=== PATIENT | male | born 1950 | race Caucasian/White ===

== ENCOUNTER → 2017-06-16 | Outpatient (CLI) | payer MEDICARE ==
--- NOTE | 2017-06-16 13:41 | RADIOLOGY REPORT (SQ) ---
EXAM DESCRIPTION: U/S THYROID/SFT TISS HD NECK COMPLETED DATE/TIME: 06/16/2017 11:18 am REASON FOR STUDY: NECK MASS (R22.1) R22.1 LOCALIZED SWELLING, MASS AND LUMP, NECK COMPARISON: None. TECHNIQUE: Dynamic and static albarado-scale images acquired of the thyroid gland. Selected additional c olor/power Doppler images recorded. All images stored to PACS. LIMITATIONS: None. FINDINGS: RIGHT LOBE: Normal size, 4.5 x 1.4 x 2 cm in size. Homogeneous echotexture. No worrisome solid masses. Several tiny colloid cysts are present, the largest is 4 mm in the right midpole glan d. LEFT LOBE: Normal size, 4.5 x 1.8 x 1.5 cm in size. Homogeneous echotexture. No worrisome solid mas ses. Several tiny colloid cysts are present less than 8 mm in size. ISTHMUS: Normal size. Homogeneous echotexture. No cystic or solid masses. OTHER: Please note that this was a focus thyroid exam. If there is a palpable neck elsewhere in the patient's neck, a focused ultrasound exam could be performed in this area IMPRESSION: ESSENTIALLY NORMAL THYROID ULTRASOUND FOR THE PATIENT'S AGE. TECHNICAL DOCUMENTATION: JOB ID: [id number] [employer]- All Rights Reserved Reading location - IP/workstation name: [email or web address]
== END ==
LOC: RAD 10:17
PROVIDERS: ATTEND Family Medicine
DX: R22.1 Localized swelling, mass and lump, neck (principal)
CPT/HCPCS: 76536

== ENCOUNTER 2020-03-28 05:52 | Day surgery (SDC) | payer MEDICARE ==
[2020-03-24 09:55] LABS: HEMATOCRIT 43.9 % (37.9-51.0); HEMOGLOBIN 15.2 g/dL (13.5-17.0); MEAN CORPUSCULAR HEMOGLOBIN 30.9 pg (27.0-33.4); MEAN CORPUSCULAR HGB CONC 34.6 g/dL (32.0-36.0); MEAN CORPUSCULAR VOLUME 90 fl (80-97); PLATELET COUNT 205 10^3/uL (150-450); RED CELL DISTRIBUTION WIDTH 13.8 % (11.5-14.0); WHITE BLOOD COUNT 7.7 10^3/uL (4.0-10.5)
[2020-03-24 09:58] LABS: INTERNATIONAL RATION (INR) 0.86
[2020-03-24 09:59] LABS: PARTIAL THROMBOPLASTIN TIME 28.4 SEC (23.5-35.8)
--- NOTE | 2020-03-24 19:25 | EKG REPORT ---
SEVERITY:- NORMAL ECG - SINUS RHYTHM : Confirmed by: Ashley Urias MD 24-Mar-2020 19:25:00
[~2020-03-28 05:52] MED LIST: CEFAZOLIN 1 GM/D5W RTU 1 GM/50 ML RTUPB IV ONE; CEFAZOLIN 1 GM/D5W RTU 1 GM/50 ML RTUPB IV PRN; LACTATED RINGERS 1000 ML IV PRN; LIDOCAINE 0.5% INJ-PF (5 MG/ML) 50 ML SDV SUBCUT PRN
[2020-03-28] MEDS ORDERED: MIDAZOLAM 2 MG/2 ML INJ ONE (07:06)
[2020-03-28] MEDS ORDERED: FENTANYL CITRATE INJ/PF 100 MCG/2 ML AMPUL ONE (07:06)
[2020-03-28] MEDS ORDERED: DEXMEDETOMIDINE INJ 80 MCG/20 ML VIAL IV ONE (07:06)
[2020-03-28] MEDS ORDERED: SODIUM BICARBONATE 4.2% INJ (2.5 MEQ/5 ML) VIAL ONE (07:07)
[2020-03-28] MEDS ORDERED: PROPOFOL INJ 200 MG/20 ML VIAL IV ONE (07:07)
[2020-03-28] MEDS ORDERED: POVIDONE-IODINE 5% OPH PREP SOLN 30 ML ONE (07:08)
[2020-03-28] MEDS ORDERED: LIDOCAINE 1%/EPINEPHRINE INJ 20 ML VIAL ONE (07:08)
[2020-03-28] MEDS ORDERED: MEPERIDINE HCL/PF INJ 25 MG/1 ML DISP.SYRIN IV PRN (08:00)
[2020-03-28] MEDS ORDERED: ONDANSETRON HCL INJ/PF 4 MG/2 ML SDV IV PRN (08:00)
[2020-03-28] MEDS ORDERED: MORPHINE SULFATE 10 MG/ML INJ IV PRN (08:00)
[2020-03-28] MEDS ORDERED: PROMETHAZINE HCL INJ 25 MG/1 ML VIAL IV PRN ×2 (08:00)
[2020-03-28] MEDS ORDERED: FENTANYL CITRATE INJ/PF 100 MCG/2 ML AMPUL IV PRN ×3 (08:00)
[2020-03-28] MEDS ORDERED: OXYCODONE-ACETAMINOPHEN 5-325 MG TABLET PO PRN ×2 (08:00)
[2020-03-28] MEDS ORDERED: DIPHENHYDRAMINE HCL 50 MG/ML VIAL IV PRN (08:00)
--- NOTE | 2020-03-28 09:38 | Operative Report ---
Operative Report DATE OF SURGERY: 03/28/20 PREOPERATIVE DIAGNOSIS: Suspected basal cell carcinoma of the right lower eyelid POSTOPERATIVE DIAGNOSIS: Basal squamous carcinoma of the left lower eyelid OPERATION: Excision of basal squamous carcinoma from the right lower eyelid with frozen section margin control and reconstruction with a rotation flap SURGEON: ROSE GOMEZ ANESTHESIA: LMAC TISSUE REMOVED OR ALTERED: Basal squamous carcinoma COMPLICATIONS: None ESTIMATED BLOOD LOSS: Minimal PROCEDURE: Patient seen and was marked prior to being brought into the operating room. Patient was brought into the operating room and placed on the operating room table in a supine position. Patient was then prepped with a Betadine scrub and Betadine solution and draped in a sterile and aseptic manner. The area was then marked. 12 O'clock was marked towards the nose 3 O'clock was marked towards the mouth 6:00 was marked towards the ear 9:00 was marked towards the upper eyelid The area was then anesthetized with 1% lidocaine with epinephrine and bicarbonate for its anesthetic and hemostatic effects. The area was then excised and marked at 12:00. The specimen was sent for frozen section. The results came back that the deep and lateral margins were free. We had considered a primary closure but this would go against the natural relaxed skin tension lines. A primary closure would be too tight and would have increased chance of dehiscence. This will leave more of a scar so we decided to use a rotation flap reconstruction which would camouflage the scar better and take tension off of the closure so that would be less chances of complications. It was felt that by using this flap that we would be able to bring tissue into the area of the defect. Patient had a very weak eyelid. Horizontal distraction was approximately 1 cm and recovery was approximately 2+ seconds. Vertical distraction was greater than 2 seconds recovery. This showed this was a very weak eyelid. The reconstruction had to be a horizontal reconstruction anchoring the reconstruction onto the nose and maintaining skin volume in the eyelid. There could be no tension on the eyelid in the vertical direction. By using a rotation flap we were able to bring tissue into the area and keep the reconstruction in a horizontal direction with a vertical scar and minimize any straight line scarring that would cause problems when it contracts. All these considerations were taken into account with choosing the correct reconstruction. Then we went ahead and outlined the flap and anesthetized it. We then incised the flap and developed a flap maintaining the subdermal plexus. Then we undermined 360 to allow for plate like scarring and minimize trap door deformity. Throughout the case hemostasis was achieved with the bipolar. We then sutured the flap into its new position using 4-0 Vicryl and 5-0 Vicryl f or the subcutaneous and deep dermis. Skin was closed with a interrupted stitch using 5-0 fast-absorbing gut and 5-0 Prolene with knots being tied on the outside. We then applied tincture benzoin and Steri-Strips followed by a light pressure dressing. Patient was then reversed from anesthesia and taken to the [facility] for recovery. The patient tolerated well. There were no complications. Lesion size was approximately 1.7 cm please see pathology for actual size. Portions of this note may be dictated using [employer] voice recognition software. Occasional variations and spelling and vocabulary could be possible and are unintentional. Additionally, there is a chance that some errors may not be caught or corrected. Please notify the author of any discrepancies noted or if any statements are unclear. Subjective: No complaints Objective: Vital signs stable afebrile No bleeding Dressing intact Assessment and plan: Doing well. Elevate the operative site. Resume medications. Take antibiotics for 1 day Follow-up Full instructions were given to the patient and family and they understand Portions of this note may be dictated using [employer] voice recognition software. Occasional variations and spelling and vocabulary could be possible and are unintentional. Additionally, there is a chance that some errors may not be caught or corrected. Please notify the offer of any discrepancies noted or if any statements are unclear.
--- NOTE | 2020-03-28 09:40 | Discharge Summary ---
Discharge Summary (SDC) - Discharge Final Diagnosis: Basal squamous cell carcinoma of the right lower eyelid Date of Surgery: 03/28/20 Condition: Good Treatment or Instructions: Leave the top dressing on for 2 days, then removed. Leave the steri-strip tapes on for 5 days, then removal. Then cleaning wound with peroxide and apply bacitracin 3 times per day. Antibiotics for 1 day, then discontinue. Elevate operative area to decrease swelling. Do not strain, or lift heavy objects. Call for excessive bleeding, increased temperature of 101, uncontrolled pain, or excessive nausea or vomiting. You may reach Dr. Cordoba through his office at [phone]. In the event of an emergency after hours, then contact Dr. Cordoba through [facility]. Return to the office for a postop check on . The time will be scheduled by the nursing staff of [facility] prior to discharge. Please give the patient a copy of their labs and EKG so they can bring this to their PMD. Thank you Portions of this note may be dictated using [employer] voice recognition software. Occasional variations and spelling and vocabulary could be possible and are unintentional. Additionally, there is a chance that some errors may not be caught or corrected. Please notify the offer of any discrepancies noted or if any statements are unclear. Referrals: CÉSAR STEARNS MD [Primary Care Provider] - Discharge Diet: As Tolerated Discharge Activity: No Lifting/Push/Pulling Report the Following to Your Physician Immediately: Unusual Bleeding - Keep head elevated no bending or straining Leave top dressing on till Friday unless it gets contaminated. If the dressing needs to be removed clean the wound with p eroxide and apply bacitracin. Resume any medicines stopped for the surgery starting tomorrow.
[2020-03-28 11:17] VITALS: BP 108/75
== END 2020-03-28 11:00 | disposition home or self-care (01) ==
LOC: OROUT 05:52
PROVIDERS: ATTEND Plastic Surgery
DX: C44.1222 Squamous cell carcinoma of skin of right lower eyelid, including canthus (principal); L98.499 Non-pressure chronic ulcer of skin of other sites with unspecified severity; Z01.812 Encounter for preprocedural laboratory examination; Z20.822 Contact with and (suspected) exposure to COVID-19; Z79.899 Other long term (current) drug therapy; I10 Essential (primary) hypertension; F17.210 Nicotine dependence, cigarettes, uncomplicated; Z51.81 Encounter for therapeutic drug level monitoring
CPT/HCPCS: 93005; 36415; 85027; 85610; 85730; 88305 ×2; 88331 ×2; 93010; 14060; U0003; J2250; J0690; J3490 ×4; J2704; C9803; 300; 87635; J3010